=== PATIENT | female | born 1995 | race Caucasian/White ===

== ENCOUNTER 2020-01-16 07:46 | Emergency (ER) | payer SELFPAY ==
[~2020-01-16] VITALS: Ht 177.8 cm; Wt 99.8 kg
[2020-01-16 08:14] VITALS: BP_SYST 124
--- NOTE | 2020-01-16 08:22 | NUR ---
Patient triaged and placed in waiting room. VSS and patient appears in no acute distress at this time. Accompanied by boyfriend, awaiting available bed, and MD notified of need for MSE.
--- NOTE | 2020-01-16 09:02 | NUR ---
Patient to ER bed 2 to gown for evaluation. Side rails up. Report given to KATYA Palumbo.
--- NOTE | 2020-01-16 09:04 | NUR ---
Patient arrived in the ED c/o pain and swelling on left ankle that started Thursday, non-weight bearing per patient. Patient denied any chest pain or shortness of breath. Denied any fevers, chills, nausea, or vomiting. Patient is alert and oriented x4, respirations even and unlabored, speaking in full sentences, ambulating with a steady gait. VSS, pain level 8/10. at bedside. Informed of approximate wait time. Instructed to notify ED staff for any changes in condition or worsening of symptoms. Patient verbalized understanding.
--- NOTE | 2020-01-16 09:13 | NUR ---
X-ray tech at bedside as ordered by Dr. Rivera. Patient tolerated the procedure well.
[2020-01-16 10:15] VITALS: BP_SYST 124
--- NOTE | 2020-01-16 10:15 | NUR ---
Patient given written and verbal discharge instructions and verbalizes understanding. ER MD discussed with patient the results and treatment provided. Patient in stable condition. ID arm band removed. Rx of Tramadol and Naproxen given. Patient educated on pain management and to follow up with PMD. Pain Scale 0/10. Opportunity for questions provided and answered. Medication side effect fact sheet provided.
== END 2020-01-16 10:15 | disposition home or self-care (01) ==
LOC: SED 07:46
DX: S93.402A Sprain of unspecified ligament of left ankle, initial encounter (principal); X50.1XXA Overexertion from prolonged static or awkward postures, initial encounter; Y93.01 Activity, walking, marching and hiking; Y92.89 Other specified places as the place of occurrence of the external cause; Y99.8 Other external cause status
CPT/HCPCS: 99284